=== PATIENT | male | born 1980 | race Asian ===

== ENCOUNTER 2024-12-24 07:08 | Day surgery (SDC) | payer BC ==
[2024-12-24] VITALS (8 sets, daily range): BP systolic 102–114; BP diastolic 60–68; PULSE 79–91; RESP 11–17; TEMP 98.8; O2SAT 98–100
[~2024-12-24] VITALS: Ht 170.2 cm; Wt 68.0 kg
[~2024-12-24 07:08] MED LIST: MIDAZolam 1 MG/ML 5ML VIAL ONE; NO HOME MEDS; fentaNYL/PF 50MCG/1 ML 2ML syringe ONE; ringers solution, lacted 1,000 ML IV SCH
[2024-12-24] MEDS ORDERED: simethicone 40mg/0.6ml oral drops 15ml ONE (08:00)
[2024-12-24] MEDS ORDERED: fentaNYL/PF 50MCG/1 ML 2ML syringe ONE (08:18)
[2024-12-24] MEDS ORDERED: MIDAZolam 1 MG/ML 5ML VIAL ONE (08:18)
== END 2024-12-24 09:10 | disposition home or self-care (01) ==
LOC: GI LAB 07:08
PROVIDERS: ATTEND Internal Medicine Gastroenterology
DX: Z12.11 Encounter for screening for malignant neoplasm of colon (principal); E78.5 Hyperlipidemia, unspecified; Z98.890 Other specified postprocedural states
CPT/HCPCS: 45378; 82948; J2250; J3010; J7120; Z7512; 99152; A4620